=== PATIENT | male | born 1965 | race Caucasian/White ===

== ENCOUNTER 2017-12-03 15:39 | Emergency (ER) | payer MEDICAID ==
[~2017-12-03] VITALS: Ht 172.7 cm; Wt 83.9 kg
--- NOTE | 2017-12-03 15:50 | NUR ---
PT bb self from home with c/o headache x 15 days; left sided pain; non-radiating; 04/16. PT states + dizziness and blurred vision. pt is aaox4. Pt ambulated with steady gait to er bed 11. Resp even and unlabored. no s/s of acute distress noted. pt safety and comfort measures in place. PT placed on monitor and pox. awaiting md for eval.
--- NOTE | 2017-12-03 16:14 | NUR ---
PT TO CT
--- NOTE | 2017-12-03 16:21 | NUR ---
pt back from ct
[2017-12-03] MEDS ORDERED: ONDANSETRON HCL/PF 4 MG/2 ML VIAL ONE (16:22)
[2017-12-03] MEDS ORDERED: KETOROLAC TROMETHAMINE INJ 30 MG/ML VIAL ONE (16:22)
[2017-12-03] MEDS ORDERED: IV NS 0.9% 1,000 ML BAG IV ONE (16:30)
[2017-12-03] MEDS ORDERED: KETOROLAC TROMETHAMINE INJ 30 MG/ML VIAL IV ONE (16:30)
[2017-12-03] MEDS ORDERED: ONDANSETRON HCL/PF 4 MG/2 ML VIAL IVP ONE (16:30)
--- NOTE | 2017-12-03 16:35 | NUR ---
RT WRIST #20 IV ACCESS. MEDS GIVEN ORDERED
--- NOTE | 2017-12-03 17:33 | NUR ---
Patient discharged to home in stable condition. Written and verbal after care instructions along with RX given. Patient verbalizes understanding of instruction.IV removed. Catheter intact and site benign. Pressure and 4x4 applied to site. No bleeding noted. VSS upon discharge. Pt ambulated with steady gait out of ER.
[2017-12-03 17:37] VITALS: BP 134/81
== END 2017-12-03 17:38 | disposition home or self-care (01) ==
LOC: ER 15:41
DX: R51 Headache (principal); R42 Dizziness and giddiness
CPT/HCPCS: 70450-TC; 82962-TC; A4606; J1885; J2405; J7030; Z7610